=== PATIENT | female | born 1970 | race Two or more races ===

== ENCOUNTER 2019-10-01 06:48 | Day surgery (SDC) | payer OTHER ==
[2019-09-30 17:25] VITALS: BMI 26.6
[2019-10-01] MEDS ORDERED: DEXAMETHASONE SOD PHOSPHATE/PF 10 MG/ML SDV ONE ×2 (07:12→08:56)
[2019-10-01] MEDS ORDERED: TRIAMCINOLONE ACET 40MG/1ML VIAL ONE (07:12)
[2019-10-01] MEDS ORDERED: BETAMET ACET/BETAMET NA PH 30 MG/5 ML VIAL ONE (07:13)
[2019-10-01] MEDS ORDERED: LIDOCAINE HCL 1%, 10 MG/ML (20ML VIAL) ONE (07:13)
[2019-10-01] MEDS ORDERED: BUPIVACAINE HCL/PF 0.75% 10 ML VIAL ONE (07:13)
--- NOTE | 2019-10-01 08:45 | HP ---
Admitting History and Physical - Admission Chief Complaint: Axial low back pain History of Present Illness: Pt complains of axial low back pain. History Source: Family Member - Past Medical History ...LMP: 09/24/19 - Smoking History Smoking history: Current every day smoker Have you smoked in the past 12 months: Yes Aproximately how many cigarettes per day: 7 - Alcohol/Substance Use Hx Alcohol Use: No Home Medications - Allergies Allergies/Adverse Reactions: Allergies Allergy/AdvReac Type Severity Reaction Status Date / Time No Known Drug Allergies Allergy Verified 09/30/19 17:29 - Home Medications Home Medications: Ambulatory Orders Aspirin Coated [Ecotrin -] 81 mg PO DAILY 09/30/19 Nortriptyline HCl [Pamelor -] 10 mg PO DAILY 09/30/19 Zolpidem Tartrate [Ambien] 10 mg PO PRN PRN 09/30/19 Acetaminophen [Tylenol -] 500 mg PO PRN 10/01/19 Ascorbic Acid [Vitamin C] 500 mg PO DAILY 10/01/19 Cholecalciferol (Vitamin D3) [Vitamin D3 -] 400 unit PO DAILY 10/01/19 [place] Extract [[place]] 1 tab PO DAILY 10/01/19 Physical Examination Vital Signs: Vital Signs Temperature 98.2 F 10/01/19 07:25 Pulse Rate 85 10/01/19 07:25 Respiratory Rate 20 10/01/19 07:25 Blood Pressure 105/77 10/01/19 07:25 O2 Sat by Pulse Oximetry (%) 99 10/01/19 07:26 Constitutional: Yes: Well Nourished, No Distress, Calm Eyes: Yes: Conjunctiva Clear HENT: Yes: Normocephalic Neck: Yes: Trachea Midline Cardiovascular: Yes: Regular Rate and Rhythm Respiratory: Yes: Regular Musculoskeletal: Yes: Back Pain (facet loading positive) Assessment/Plan The patients axial low back pain is likley secondary to lumbar spondylosis. 1. I will perform diagnostic lumbar medial branch blocks bilateral at L3 L4 L5 medial branches. 2. Deion tirado in 1 week. William Guzmán DO
[2019-10-01] MEDS ORDERED: LIDOCAINE HCL/PF 1% SDV 5ML VIAL ONE (08:56)
[2019-10-01] MEDS ORDERED: LIDOCAINE HCL 1%, 10 MG/ML (20ML VIAL) INF ONE (09:44)
[2019-10-01] MEDS ORDERED: BUPIVACAINE HCL/PF 0.75% 10 ML VIAL NR ONE (09:46)
[2019-10-01] MEDS ORDERED: IOHEXOL 180 MG/1 ML ML IJ ONE (09:47)
[2019-10-01 10:09] VITALS: BP 116/76; PULSE 82; TEMP 98.1
--- NOTE | 2019-10-02 17:10 | PROC ---
Procedure Note Procedure: Date: 10/01/2019 : 1970 Age: 48 Year(s) Sex: Female Name of the patient: Mily Claros Preoperative Diagnosis: Lower back pain, Lumbar facet arthropathy Right & Left Postoperative Diagnosis: Same Procedure Performed: Lumbar facet Medial Branch diagnostic Block at L3-S1 levels Right & Left Anesthesia: Local Procedure: Procedure: After the risks and benefits were explained, informed consent was obtained. The patient was then taken to the procedure room and positioned prone on the procedure table. Time out was performed. The region overlying the appropriate vertebral bodies was identified using fluoroscopy. The skin was prepped and draped in the usual sterile fashion. The skin and soft tissues were anesthetized using 1% lidocaine. Using fluoroscopic guidance, 22 gauge 3.5 inch spinal needles were then introduced to the juncture of the superior articular processes and the transverse processes of the RIGHT L3 , L4, and L5 medial branches are located. Omnipaque 180 confirmed appropriate needle placement. There was no epidural or vascular flow observed. .75% bupivacaine was drawn into a syringe. 0.5cc of this solution was then injected at each level. The same procedure was repeated on the LEFT side at the same levels. The patient tolerated the procedure well and there were no complications. The patient was taken to the post procedure recovery area in good condition. Vital signs remained stable before, and after the procedure. The patient was given oral follow-up instructions.The patient was givena follow up appointment with me in the near future. William Guzmán D.O. ^
== END 2019-10-01 10:35 | disposition home or self-care (01) ==
LOC: JASU-SURG 06:48
PROVIDERS: ATTEND Pain Medicine Pain Medicine
PROC: BR16YZZ Fluoroscopy of Lumbar Facet Joint(s) using Other Contrast (ICD-10-PCS; 2019-10-01)
PROC: 3E0T3BZ Introduction of Anesthetic Agent into Peripheral Nerves and Plexi, Percutaneous Approach (ICD-10-PCS; principal; 2019-10-01 09:00)
DX: M47.896 Other spondylosis, lumbar region (principal); M47.897 Other spondylosis, lumbosacral region; M54.5 Low back pain; F17.210 Nicotine dependence, cigarettes, uncomplicated
CPT/HCPCS: 76000-TC-FY; 84703

== ENCOUNTER 2022-10-07 04:15 | Day surgery (SDC) | payer OTHER ==
[2022-10-03 15:14] VITALS: BMI 26.6
[~2022-10-07 04:15] MED LIST: BUPIVACAINE HCL/PF 0.25% (2.5MG/ML) 10 ML VIAL IJ ONE; DEXAMETHASONE SOD PHOSPHATE 10 MG/1 ML VIAL IVPUSH ONE; IOHEXOL 180 MG/1 ML ML IJ ONE; LIDOCAINE HCL 1%, 10 MG/ML (20ML VIAL) NR ONE
[2022-10-07] MEDS ORDERED: BUPIVACAINE HCL/PF 0.25% (2.5MG/ML) 10 ML VIAL ONE (07:18)
[2022-10-07] MEDS ORDERED: LIDOCAINE HCL/PF 1% SDV 5ML VIAL ONE (07:18)
[2022-10-07] MEDS ORDERED: DEXAMETHASONE SOD PHOSPHATE 10 MG/1 ML VIAL ONE (07:18)
[2022-10-07] MEDS ORDERED: MIDAZOLAM HCL 2 MG/2 ML SINGLE DOSE VIAL ONE (11:09)
[2022-10-07] MEDS ORDERED: PROPOFOL 20 ML ONE (11:09)
[2022-10-07] MEDS ORDERED: BUPIVACAINE HCL/PF 0.25% (2.5MG/ML) 10 ML VIAL IJ ONE (11:16)
[2022-10-07] MEDS ORDERED: DEXAMETHASONE SOD PHOSPHATE 10 MG/1 ML VIAL IVPUSH ONE (11:17)
[2022-10-07] MEDS ORDERED: LIDOCAINE HCL 1%, 10 MG/ML (20ML VIAL) NR ONE (11:17)
[2022-10-07] MEDS ORDERED: IOHEXOL 180 MG/1 ML ML IJ ONE (11:17)
[2022-10-07 11:37] VITALS: RESP 20
[2022-10-07 12:26] VITALS: BP 105/67; PULSE 80; TEMP 98.5
== END 2022-10-07 12:40 | disposition home or self-care (01) ==
LOC: JASU-SURG 04:15
PROVIDERS: ATTEND Physical Medicine & Rehabilitation
PROC: 3E0R3BZ Introduction of Anesthetic Agent into Spinal Canal, Percutaneous Approach (ICD-10-PCS; 2022-10-07)
PROC: 3E0R33Z Introduction of Anti-inflammatory into Spinal Canal, Percutaneous Approach (ICD-10-PCS; principal; 2022-10-07 11:00)
DX: M54.16 Radiculopathy, lumbar region (principal); M54.50 Low back pain, unspecified
CPT/HCPCS: 76000-TC-FY; 81025; J1100